=== PATIENT | female | born 1980 | race Caucasian/White ===

== ENCOUNTER → 2019-08-01 | Outpatient (CLI) | payer MEDICAID ==
--- NOTE | 2019-08-01 13:45 | Diagnostic Imaging Report ---
PROCEDURE: US Thyroid. TECHNIQUE: Multiple real-time grayscale images were obtained of the thyroid in various projections. INDICATION: Abnormal thyroid labs. No prior studies are available for comparison. Both lobes of the thyroid gland are enlarged. The right lobe measures 5.5 x 1.7 x 1.6 cm and the left lobe measures 5.7 x 2.2 x 2.6 cm. Several subcentimeter circumscribed hypoechoic nodules in the right lobe are identified, largest approximately 7 mm x 5 mm in the upper pole. There is a dominant solid lesion involving the left lobe of the thyroid in the mid lower aspect. This measures 3.5 x 2.3 x 2.4 cm. There is some internal vascularity. No microcalcifications are seen. IMPRESSION: Dominant solid mass left lobe of thyroid. Fine-needle aspiration is recommended for further evaluation. Dictated by: Dictated on workstation # [id number]
== END ==
LOC: RAD 12:06
PROVIDERS: ATTEND Registered Nurse
DX: Z13.29 Encounter for screening for other suspected endocrine disorder (principal); E04.1 Nontoxic single thyroid nodule
CPT/HCPCS: 76536

== ENCOUNTER → 2019-12-30 | Outpatient (CLI) | payer MEDICAID ==
--- NOTE | 2019-12-30 12:15 | Diagnostic Imaging Report ---
PROCEDURE: US Thyroid. TECHNIQUE: Multiple real-time grayscale images were obtained of the thyroid in various projections. INDICATION: Thyroid nodule, followup. Correlation is made with prior thyroid ultrasound from 08/01/2019. A right lobe of thyroid measures 5.2 x 1.6 x 1.9 cm and the left lobe measures 6.1 x 2.5 x 2.7 cm. Isthmus is 5 mm in thickness. There are several subcentimeter hypoechoic nodules within the right lobe ranging in size from 4 to 7 mm. These are similar to prior exam. The dominant solid mass in the lower pole left lobe measures 2.4 x 3.5 x 2.4 cm compared with 2.3 x 3.5 x 2.4 cm on prior. No new masses detected. IMPRESSION: Stable thyroid ultrasound and stable dominant left lobe thyroid nodule when compared exam from 08/01/2019. Dictated by: Dictated on workstation # [id number]
== END ==
LOC: RAD 11:00
PROVIDERS: ATTEND Nurse Practitioner Family
DX: E04.1 Nontoxic single thyroid nodule (principal)
CPT/HCPCS: 76536

== ENCOUNTER → 2020-05-24 | Outpatient (CLI) | payer MEDICAID ==
[2020-05-24 11:46] LABS: BASOPHILS # (AUTO) 0.1 10^3/uL (0.0-0.1); BASOPHILS % (AUTO) 1 % (0-10); EOSINOPHILS # (AUTO) 0.4 10^3/uL (0.0-0.3); EOSINOPHILS % (AUTO) 2 % (0-10); HEMATOCRIT 49 % (35-52); HEMOGLOBIN 16.8 g/dL (11.5-16.0); LYMPHOCYTES % (AUTO) 32 % (12-44); MEAN CORPUSCULAR HEMOGLOBIN 32 pg (25-34); MEAN CORPUSCULAR HGB CONC 34 g/dL (32-36); MEAN CORPUSCULAR VOLUME 94 fL (80-99); MEAN PLATELET VOLUME 9.5 fL (9.0-12.2); MONOCYTES # (AUTO) 0.7 10^3/uL (0.0-1.0); MONOCYTES % (AUTO) 5 % (0-12); NEUTROPHILS # (AUTO) 9.1 10^3/uL (1.8-7.8); NEUTROPHILS % (AUTO) 60 % (42-75); PLATELET COUNT 285 10^3/uL (130-400); WHITE BLOOD COUNT 15.4 10^3/uL (4.3-11.0)
[2020-05-24 12:08] LABS: BAND NEUTROPHILS 1 %; BASOPHILS % (MANUAL) 0 %; EOSINOPHILS % (MANUAL) 2 %; LYMPHOCYTES % (MANUAL) 27 %; MONOCYTES % (MANUAL) 3 %; NEUTROPHILS % (MANUAL) 60 %; RBC MORPH NORMAL; REACTIVE LYMPHOCYTES 7 %
[2020-05-24 12:09] LABS: ERYTHROCYTE SEDIMENTATION RATE 4 MM/HR (0-20)
[2020-05-24 12:11] LABS: ALBUMIN 3.9 GM/DL (3.2-4.5); BILIRUBIN,TOTAL 0.5 MG/DL (0.1-1.0); CALCIUM 9.1 MG/DL (8.5-10.1); CREATININE SERUM 1.02 MG/DL (0.60-1.30); POTASSIUM 3.9 MMOL/L (3.6-5.0); TOTAL PROTEIN 7.7 GM/DL (6.4-8.2)
[2020-05-24 12:32] LABS: FREE T4 (FREE THYROXINE) 0.99 NG/DL (0.70-1.48)
== END ==
LOC: LAB 11:23
PROVIDERS: ATTEND Nurse Practitioner Family
DX: L40.0 Psoriasis vulgaris (principal); R94.6 Abnormal results of thyroid function studies; R53.83 Other fatigue; R20.2 Paresthesia of skin
CPT/HCPCS: 36415; 80053; 82607; 84439; 84443; 84480; 85007; 85027; 85652; 86038; 86039; 86141; 86480